=== PATIENT | female | born 1930 ===

== ENCOUNTER 2017-01-22 18:13 | Emergency (ER) | payer MEDICARE, OTHER ==
[2017-01-22 18:32] VITALS: RESP 18; O2SAT 99
[2017-01-22 19:43] LABS: BASO % 0.2 % (0.0-2.0); EOS % 0.1 % (0.0-4.0); HEMATOCRIT 40.5 % (34.0-47.0); LYMPH # 0.9 K/uL (1.0-4.3); LYMPH % 17.8 % (20.0-40.0); MEAN CELL VOLUME 92.5 fl (81.0-99.0); MEAN CORPUSCULAR HEMOGLOBIN 31.4 pg (27.0-31.0); MEAN CORPUSCULAR HGB CONC 33.9 g/dL (33.0-37.0); MEAN PLATELET VOLUME 9.7 fl (7.2-11.7); MONO # 0.5 K/uL (0.0-0.8); MONO % 9.9 % (0.0-10.0); NEUT # 3.7 K/uL (1.8-7.0); NRBC % 0.2 % (0.0-0.0); RED CELL DISTRIBUTION WIDTH 13.6 % (11.5-14.5); WHITE BLOOD COUNT 5.2 K/uL (4.8-10.8)
--- NOTE | 2017-01-22 19:44 | ED PDOC ---
Syncope/Near Syncope/Dizzyness Time Seen by Provider: 01/22/17 19:10 Chief Complaint (Nursing): Dizziness/Lightheaded Chief Complaint (Provider): Dizziness History Per: Patient, Family (son) History/Exam Limitations: no limitations Onset/Duration Of Symptoms: Hrs (x5 hours ago), Sudden Onset Current Symptoms Are (Timing): Better Current Symptoms: none Number Of Syncopal Episodes: 1 Activity At Onset Of Symptoms: Had Just Stood up Associated Symptoms Preceding Syncopal Episode: No Predromal Symptoms (Sudden Onset) Possible Causative Factor(s): Lightheaded W/Standing Fall Associated With With Symptoms: No, No Injury As Result Of Fall Severity: Moderate Additional Complaint(s): Marce Barahona is a 87 year old female, with a past medical history of HTN, who presents to the emergency department with complaints of a syncopal episode that she experienced five hours prior to arrival at 2:30 P.M on 2016. The patient reports the initial onset of the syncopal episode coming on suddenly as she stood up from a nap. She slipped and fell back, but did not hit her head or retain any injuries. After the episode ended, she called her son and he brought her into the emergency department. He explained that on the way to the emergency room that she was unsteady for a brief amount of time; however , she reports feeling better now and remembering everything completely. The patient denies dizziness. PMD: Tiffanie Levine - Symptoms Of CVA Recent Aspirin Use: Unknown Current Coumadin Use?: Unknown Past Medical History Reviewed: Historical Data, Nursing Documentation, Vital Signs Vital Signs: Last Vital Signs Temp 99.5 F 01/22/17 18:28 Pulse 117 H 01/22/17 18:28 Resp 18 01/22/17 18:28 BP 144/70 01/22/17 18:28 Pulse Ox 99 01/22/17 18:28 - Medical History PMH: Arthritis, HTN - Surgical History Surgical History: No Surg Hx - Family History Family History: States: Unknown Family Hx - Social History Current smoker - smoking cessation education provided: No Ex-Smoker (has not smoked in the last 12 months): No Alcohol: None Drugs: Denies - Home Medications Home Medications: Ambulatory Orders Medication Instructions Recorded Docusate Sodium [Colace] 100 mg PO BID #20 sgl 06/10/15 oxyCODONE/Acetaminophen [Percocet 1 ea PO Q6 #10 tab 06/10/15 5/325 mg Tab] Nitrofurantoin Macrocrystals 100 mg PO BID 5 Days 01/22/17 [Macrobid] - Allergies Allergies/Adverse Reactions: Allergies Allergy/AdvReac Type Severity Reaction Status Date / Time No Known Allergies Allergy Verified 06/10/15 16:49 - Laboratory Results Result Diagrams: 01/22/17 19:20 01/22/17 19:20 - ECG O2 Sat by Pulse Oximetry: 99
[2017-01-22 19:55] LABS: CALCIUM 9.6 mg/dL (8.4-10.2)
[2017-01-22 19:57] LABS: POTASSIUM 5.2 MMOL/L (3.6-5.0)
[2017-01-22 20:07] LABS: TROPONIN I 0.014 ng/mL (0.00-0.120)
[2017-01-22 20:16] LABS: RBC URINE 8 /hpf (0-3); URINE BACTERIA RARE (<OCC); URINE BILIRUBIN NEGATIVE (NEGATIVE); URINE BLOOD MODERATE (NEGATIVE); URINE COLOR YELLOW (YELLOW); URINE GLUCOSE (UA) NEG (Normal); URINE KETONE NEGATIVE (NEGATIVE); URINE LEUKOCYTE ESTERASE LARGE Leu/uL (Negative); URINE PROTEIN 30 mg/dL (NEGATIVE); URINE UROBILINOGEN 0.2-1.0 mg/dL (0.2-1.0); WBC URINE 373 /hpf (0-5)
[2017-01-22 20:34] VITALS: BP 139/109; PULSE 95; TEMP 98.4
--- NOTE | 2017-01-22 20:40 | ED PDOC ---
HPI: General Adult Time Seen by Provider: 01/22/17 19:10 Chief Complaint (Nursing): Dizziness/Lightheaded Chief Complaint (Provider): Mechanical Loss of Balance History Per: Patient, Family (son) History/Exam Limitations: no limitations Onset/Duration Of Symptoms: Hrs (x5 hours ago) Have you had recent travel within the past 21 days to any of the following countries: [place], [place], [place] or [place]?: No Current Symptoms Are (Timing): Better Severity: Moderate Additional Complaint(s): Marce Barahona is a 87 year old female, with a past medical history of HTN, who presents to the emergency department for the evaluation of a mechanical loss of balance that she experienced five hours prior to arrival at 2 :30 P.M on 01/22/2017 as she had stood up from her bed after a nap. She slipped and fell back, but did not hit her head or sustain any injuries. After the episode ended, she called her son and he brought her into the emergency department. He explained that on the way to the emergency room that she was unsteady for a brief amount of time; however, she reports feeling better now and that she remembers all events. The patient denies dizziness, a headache, chest pain, and shortness of breath. PMD: Tiffanie Levine Past Medical History Reviewed: Historical Data, Nursing Documentation, Vital Signs Vital Signs: Last Vital Signs Temp 98.4 F 01/22/17 20:33 Pulse 95 H 01/22/17 20:33 Resp 18 01/22/17 20:33 BP 139/109 H 01/22/17 20:33 Pulse Ox 99 01/22/17 21:10 - Medical History PMH: Arthritis, HTN - Surgical History Surgical History: No Surg Hx - Family History Family History: States: Unknown Family Hx - Social History Current smoker - smoking cessation education provided: No Ex-Smoker (has not smoked in the last 12 months): No Alcohol: None Drugs: Denies - Home Medications Home Medications: Ambulatory Orders Medication Instructions Recorded Docusate Sodium [Colace] 100 mg PO BID #20 sgl 06/10/15 oxyCODONE/Acetaminophen [Percocet 1 ea PO Q6 #10 tab 06/10/15 5/325 mg Tab] Nitrofurantoin Macrocrystals 100 mg PO BID 5 Days 01/22/17 [Macrobid] - Allergies Allergies/Adverse Reactions: Allergies Allergy/AdvReac Type Severity Reaction Status Date / Time No Known Allergies Allergy Verified 06/10/15 16:49 Review of Systems Cardiovascular: Negative for: Chest Pain Respiratory: Negative for: Shortness of Breath Musculoskeletal: Positive for: Leg Pain (chronic - right-sided, sciatica) Neurological: Negative for: Headache, Dizziness Physical Exam - Reviewed Nursing Documentation Reviewed: Yes Vital Signs Reviewed: Yes - Physical Exam Appears: Positive for: Non-toxic, No Acute Distress Head Exam: Positive for: ATRAUMATIC, NORMOCEPHALIC Skin: Positive for: Normal Color, Warm, Dry Eye Exam: Positive for: Normal appearance, PERRL ENT: Positive for: Normal ENT Inspection Neck: Positive for: Normal, Supple Cardiovascular/Chest: Positive for: Regular Rate, Rhythm. Negative for: Murmur Respiratory: Positive for: Normal Breath Sounds. Negative for: Respiratory Distress Gastrointestinal/Abdominal: Positive for: Normal Exam, Soft. Negative for: Tenderness, Guarding, Rebound Back: Positive for: Normal Inspection. Negative for: L CVA Tenderness, R CVA Tenderness Extremity: Positive for: Normal ROM. Negative for: Tenderness Neurologic/Psych: Positive for: Alert, online merchandising manager II-XII (intact), Oriented, Cerebellar Tests (normal), Gait (normal). Negative for: Motor/Sensory Deficits , Aphasia, Facial Droop - Laboratory Results Result Diagrams: 01/22/17 19:20 01/22/17 19:20 - ECG O2 Sat by Pulse Oximetry: 99 Pulse Ox Interpretation: Normal Medical Decision Making Medical Decision Makin:10 Initial Impression: resolved gait, unsteadiness after waking up Initial Plan: * CXR * XR Pelvis * CBC * BMP * Troponin I * Urine Dip * UA * Urine Culture * Reevaluation 2100: Pt. w/ UTI. CXR w/ nonacute findings. Pt. walking around ED, remains without symptoms. Will d/c home. instructed to followup with PMD in 2-3 days. Scribe Attestation: Documented by Yung Munoz, training under Emily Louis, acting as a scribe for Luis Yeung MD. Provider Scribe Attestation: All medical record entries made by the Scribe were at my direction and personally dictated by me. I have reviewed the chart and agree that the record accurately reflects my personal performance of the history, physical exam, medical decision making, and the department course for this patient. I have also personally directed, reviewed, and agree with the discharge instructions and disposition. Disposition - Clinical Impression Clinical Impression: UTI (urinary tract infection) - Disposition Referrals: Tiffanie Levine MD [Family Provider] - Disposition Time: 21:00 Condition: STABLE Prescriptions: Nitrofurantoin Macrocrystals [Macrobid] 100 mg PO BID 5 Days Instructions: Urinary Tract Infection in Women (ED) Print Language: MALAYSIAN
--- NOTE | 2017-01-22 21:19 | RAD ---
EXAM: XR Pelvis, 1 or 2 Views CLINICAL HISTORY: 87 years old, female; Pain; Pelvic pain; Additional info: R/O FX TECHNIQUE: Frontal view of the pelvis. COMPARISON: CR - PELVIS ONE VIEW 06/10/2015 6:13:04 PM FINDINGS: Bones/joints: No acute fracture. Degenerative changes of lower lumbar spine. No dislocation. Mild enthesopathy. Soft tissues: Vascular calcifications. IMPRESSION: 1. No fracture. 2. If hip pain persists, consider MRI to exclude occult fracture/internal derangement. 3. Incidental/non-acute findings are described above.
--- NOTE | 2017-01-22 21:20 | RAD ---
EXAM: XR Chest, 1 View CLINICAL HISTORY: 87 years old, female; Pain; Chest pain; Type not specified; Additional info: R/O pna TECHNIQUE: Frontal view of the chest. COMPARISON: No relevant prior studies available. FINDINGS: Lungs: No consolidation. Pleural space: No pleural effusion. No pneumothorax. Heart: No cardiomegaly. Mediastinum: Unremarkable. Bones/joints: No acute fracture. Degenerative changes of shoulders and spine. Other findings: Prominent costal cartilage calcifications. IMPRESSION: 1.No definite acute cardiopulmonary disease. 2.Non-acute findings are described above.
== END 2017-01-22 21:52 | disposition home or self-care (01) ==
LOC: H.ER 18:13
DX: N39.0 Urinary tract infection, site not specified (principal); R42 Dizziness and giddiness; I10 Essential (primary) hypertension; R10.2 Pelvic and perineal pain; R07.9 Chest pain, unspecified

== ENCOUNTER 2017-02-24 13:48 | Emergency (ER) | payer MEDICARE, OTHER ==
[2017-02-24 13:57] VITALS: BP 146/62; PULSE 102; RESP 18; TEMP 98.4; O2SAT 99
[2017-02-24] MEDS ORDERED: TDAP Vaccine 0.5 mL Syr IM ONE (15:01)
--- NOTE | 2017-02-24 15:02 | ED PDOC ---
HPI: Trauma/Fall - HPI Time Seen by Provider: 02/24/17 14:43 Chief Complaint (Nursing): Trauma Chief Complaint (Provider): Head Injury History Per: Patient Additional Complaint(s): Pt. is an 87 yo female, PMH of HTN and Arthritis, presents to ED for evaluation of a laceration sustained to her scalp when she tripped and fell. Pt was going to pick something up and hit her head on the edge of the door. Denies LOC. no nausea or vomiting Pt also complaining of pain to her right hand and right knee Past Medical History Reviewed: Nursing Documentation, Vital Signs Vital Signs: Last Vital Signs Temp 98.4 F 02/24/17 13:55 Pulse 102 H 02/24/17 13:55 Resp 18 02/24/17 13:55 BP 146/62 02/24/17 13:55 Pulse Ox 99 02/24/17 13:55 - Medical History PMH: Arthritis, HTN - Surgical History Surgical History: No Surg Hx - Family History Family History: States: Unknown Family Hx - Living Arrangements Living Arrangements: With Family - Immunization History Hx Tetanus Toxoid Vaccination: No - Home Medications Home Medications: Ambulatory Orders Medication Instructions Recorded Docusate Sodium [Colace] 100 mg PO BID #20 sgl 06/10/15 oxyCODONE/Acetaminophen [Percocet 1 ea PO Q6 #10 tab 06/10/15 5/325 mg Tab] Nitrofurantoin Macrocrystals 100 mg PO BID 5 Days 01/22/17 [Macrobid] traMADol [Ultram] 25 mg PO Q4 #10 tab 02/24/17 - Allergies Allergies/Adverse Reactions: Allergies Allergy/AdvReac Type Severity Reaction Status Date / Time No Known Allergies Allergy Verified 02/24/17 13:58 Review of Systems ROS Statement: Except As Marked, All Systems Reviewed And Found Negative Musculoskeletal: Positive for: Hand Pain, Other (knee pain) Skin: Positive for: Other (laceration) Neurological: Positive for: Headache Physical Exam - Reviewed Nursing Documentation Reviewed: Yes Vital Signs Reviewed: Yes - Physical Exam Appears: Positive for: Well, Non-toxic, No Acute Distress Head Exam: Positive for: ATRAUMATIC, NORMAL INSPECTION, NORMOCEPHALIC Skin: Positive for: Normal Color, Warm, DRY Eye Exam: Positive for: EOMI, Normal appearance, PERRL ENT: Positive for: Normal ENT Inspection Neck: Positive for: Normal, Painless ROM Cardiovascular/Chest: Positive for: Regular Rate, Rhythm Respiratory: Positive for: CNT, Normal Breath Sounds Gastrointestinal/Abdominal: Positive for: Normal Exam, Bowel Sounds, Soft Back: Positive for: Normal Inspection Extremity: Positive for: Normal ROM Neurologic/Psych: Positive for: Alert, Oriented - ECG O2 Sat by Pulse Oximetry: 99 Medical Decision Making Medical Decision Making: Laceration repaired by verse writer. head CT: No acute intracranial hemorrhage. Moderate-sized right frontoparietal scalp contusion and laceration with subcutaneous swelling and air. Mild chronic white matter ischemic changes with extension into both basal nuclei. Small calcific densities within the left lateral basal ganglia/subinsular region of uncertain etiology however rule out sequela of old trauma ischemia or infection. Mild age-appropriate volume loss. Hand and Knee XR: NAD, as read by SYDNIE-C Pt without complaints of pain on re-eval. Wound care discussed. Disposition - Clinical Impression Clinical Impression: Laceration of scalp, Head injury, Laceration - Patient ED Disposition Is Patient to be Admitted: No - Disposition Disposition: Routine/Home Disposition Time: 18:08 Condition: STABLE Additional Instructions: Staple removal in 7-10 days Prescriptions: traMADol [Ultram] 25 mg PO Q4 #10 tab Instructions: Laceration (ED), Head Injury (ED) Print Language: URDU Laceration - Laceration Repair laceration Wound Length (In cm): 10 Description Of Wound: Linear Wound Cleansed With: Sterile Saline Anesthesia: Lidocaine 1%, With Epi Wound Examination: Irrigated With Saline Wound Closure: Dash Suture Technique And Material Used: Interrupted Wound Complexity: Intermediate
[2017-02-24] MEDS ORDERED: Lidocaine 2% w Epi 1:100,000 Inj IJ ONE (15:40)
--- NOTE | 2017-02-24 15:48 | CT ---
Renal function seemingly of busy 901 with written and along the with the holes PROCEDURE: CT HEAD WITHOUT CONTRAST. HISTORY: fall COMPARISON: None available. TECHNIQUE: Axial computed tomography images were obtained through the head/brain without intravenous contrast. Radiation dose: Total exam DLP = 720.08 mGy-cm. This CT exam was performed using one or more of the following dose reduction techniques: Automated exposure control, adjustment of the mA and/or kV according to patient size, and/or use of iterative reconstruction technique. FINDINGS: HEMORRHAGE: No acute parenchymal, subarachnoid nor extra-axial hemorrhage. BRAIN: Mild chronic periventricular white matter ischemic changes with scattered deep and subcortical white matter ischemic changes as well. . There also appears be some extension of these changes into the white matter tracts of both basal nuclei Small calcific densities in the left lateral basal ganglia of uncertain etiology. Findings could be sequela of old trauma ischemia or infection. Clinical correlation recommended. Vascular calcifications of both carotid siphons VENTRICLES: Mild age-appropriate volume loss. CALVARIUM: No acute calvarial fractures. Moderate right frontoparietal scalp contusion and laceration with the subjacent soft tissue swelling of. Subcutaneous air is present PARANASAL SINUSES: Unremarkable as visualized. No significant inflammatory changes. MASTOID AIR CELLS: Unremarkable as visualized. No inflammatory changes. OTHER FINDINGS: None. IMPRESSION: No acute intracranial hemorrhage. Moderate-sized right frontoparietal scalp contusion and laceration with subcutaneous swelling and air. Mild chronic white matter ischemic changes with extension into both basal nuclei. Small calcific densities within the left lateral basal ganglia/subinsular region of uncertain etiology however rule out sequela of old trauma ischemia or infection. Mild age-appropriate volume loss.
--- NOTE | 2017-02-25 06:56 | RAD ---
PROCEDURE: Left Hand Radiographs. HISTORY: fall COMPARISON: None. FINDINGS: BONES: No evidence for acute fracture. JOINTS: Arthritic degenerative changes. SOFT TISSUES: Mild soft tissue swelling OTHER FINDINGS: None. IMPRESSION: No evidence of acute fracture or dislocation.
--- NOTE | 2017-02-25 06:57 | RAD ---
PROCEDURE: Right Knee Radiographs. HISTORY: fall COMPARISON: None. FINDINGS: BONES: Normal. No fracture. JOINTS: Moderate osteoarthritic changes. JOINT EFFUSION: None. OTHER FINDINGS: None. IMPRESSION: No evidence of acute fracture or dislocation. Moderate osteoarthritic changes.
== END 2017-02-24 18:20 | disposition home or self-care (01) ==
LOC: H.ER 13:48
DX: S01.01XA Laceration without foreign body of scalp, initial encounter (principal); W01.198A Fall on same level from slipping, tripping and stumbling with subsequent striking against other object, initial encounter; Y92.9 Unspecified place or not applicable; Z23 Encounter for immunization

== ENCOUNTER 2017-03-03 11:18 | Emergency (ER) | payer MEDICARE, OTHER ==
[2017-03-03 11:23] VITALS: RESP 18; TEMP 97.9
[2017-03-03] MEDS ORDERED: Hydrogen Peroxide 3% Soln (480ml) TP ONE ×2 (11:45→12:09)
--- NOTE | 2017-03-03 13:54 | CT ---
PROCEDURE: CT Cervical Spine without contrast HISTORY: Trauma COMPARISON: None available. TECHNIQUE: Axial computed tomography images were obtained of the cervical spine without the use of intravenous contrast. Coronal and sagittal reformatted images were created and reviewed. Radiation dose: Total exam DLP = yes at the mGy-cm. This CT exam was performed using one or more of the following dose reduction techniques: Automated exposure control, adjustment of the mA and/or kV according to patient size, and/or use of iterative reconstruction technique. FINDINGS: VERTEBRAE: No acute fracture. Unremarkable alignment. DISCS/SPINAL CANAL/NEURAL FORAMINA: Multilevel disc degenerative changes primarily affecting C4-5, C5-6 and C6-7. Central bar formation noted and extending asymmetrically into the exiting neural foramen at C4-5. Broad-based bar formation with asymmetric foraminal narrowing at C6-7. PARASPINAL SOFT TISSUES: Unremarkable. OTHER FINDINGS: None. IMPRESSION: No acute fractures. Disc degenerative changes, uncovertebral hypertrophy primarily lower cervical spine described in greater detail above.
--- NOTE | 2017-03-03 14:06 | ED PDOC ---
HPI: Wound Care - HPI Time Seen by Provider: 03/03/17 11:36 Chief Complaint (Nursing): Suture/Staple Removal Chief Complaint (Provider): Suture/Staple Removal History Per: Patient Exam Limitations: no limitations Onset/Duration Of Symptoms: Days Current Symptoms Are (Timing): Still Present Severity: Mild Additional Complaint(s): Patient is a 87 year old female who presents to ED for evaluation of a head injury sustained 1 week ago. Patient reportedly fell, evaluated in ED and head laceration repaired with cameron. Now in ED for staple removal but notes new onset right sided neck pain. Denies any headache, syncope or weakness. Reports 1 episode of vomiting yesterday but that has since resolved with no abdominal pain. Past Medical History Reviewed: Historical Data, Nursing Documentation (.0), Vital Signs Vital Signs: Last Vital Signs Temp 97.9 F 03/03/17 11:19 Pulse 109 H 03/03/17 11:19 Resp 18 03/03/17 11:19 BP 132/64 03/03/17 11:19 Pulse Ox 98 03/03/17 11:19 - Medical History PMH: Arthritis, HTN - Surgical History Surgical History: No Surg Hx - Family History Family History: States: Unknown Family Hx - Immunization History Hx Tetanus Toxoid Vaccination: No - Home Medications Home Medications: Ambulatory Orders Medication Instructions Recorded Docusate Sodium [Colace] 100 mg PO BID #20 sgl 06/10/15 oxyCODONE/Acetaminophen [Percocet 1 ea PO Q6 #10 tab 06/10/15 5/325 mg Tab] Nitrofurantoin Macrocrystals 100 mg PO BID 5 Days 01/22/17 [Macrobid] traMADol [Ultram] 25 mg PO Q4 #10 tab 02/24/17 - Allergies Allergies/Adverse Reactions: Allergies Allergy/AdvReac Type Severity Reaction Status Date / Time No Known Allergies Allergy Verified 02/24/17 13:58 Review of Systems ROS Statement: Except As Marked, All Systems Reviewed And Found Negative Constitutional: Negative for: Fever, Weakness Eyes: Negative for: Vision Change Gastrointestinal: Positive for: Vomiting (resolved). Negative for: Nausea Musculoskeletal: Positive for: Neck Pain. Negative for: Back Pain Neurological: Negative for: Weakness, Headache, Dizziness Physical Exam - Reviewed Nursing Documentation Reviewed: Yes Vital Signs Reviewed: Yes - Physical Exam Appears: Positive for: Non-toxic, No Acute Distress Head Exam: Negative for: ATRAUMATIC (Large healing head laceration superior scalp with cameron, intact wtih significant dry blood (-) discharge (-) erythema (-) swelling ) Skin: Positive for: Normal Color, Warm Eye Exam: Positive for: Normal appearance, PERRL Neck: Positive for: Normal, Painless ROM, Supple Extremity: Positive for: Normal ROM Neurologic/Psych: Positive for: Alert, Oriented. Negative for: Motor/Sensory Deficits - ECG O2 Sat by Pulse Oximetry: 98 (RA) Medical Decision Making Medical Decision Making: Time: 1245 Initial impression: Head laceration, wound check Initial plan: -- CT-cervical neck Wound cleansed with hydrogen peroxide wand water, hald cameron removed. Noted area of delayed healing, bacitracin applied and remaining cameron with stay in place. Instructed patient to return in 3 days for wound check. Scribe Attestation: Documented by Nilam Marshall acting as a scribe for Homar Fulton DO MD Scribe Attestation: All medical record entries made by the Scribe were at my direction and personally dictated by me. I have reviewed the chart and agree that the record accurately reflects my personal performance of the history, physical exam, medical decision making, and the department course for this patient. I have also personally directed, reviewed, and agree with the discharge instructions and disposition.
[2017-03-03 15:00] VITALS: BP 128/70; PULSE 91; O2SAT 99
== END 2017-03-03 14:48 | disposition home or self-care (01) ==
LOC: H.ER 11:18
DX: Z48.02 Encounter for removal of sutures (principal)

== ENCOUNTER 2017-03-06 10:55 | Emergency (ER) | payer MEDICARE, OTHER ==
[2017-03-06 11:06] VITALS: BMI 22.6
[2017-03-06 11:08] VITALS: BP 127/60; PULSE 91; RESP 18; TEMP 97.7; O2SAT 100
--- NOTE | 2017-03-06 11:32 | ED PDOC ---
HPI: Wound Care - HPI Time Seen by Provider: 03/06/17 11:31 Chief Complaint (Nursing): Suture/Staple Removal Chief Complaint (Provider): staple removal History Per: Patient, Family Additional Complaint(s): 87-year-old female presents to emergency department for removal of cameron from laceration to scalp that was repaired 10 days ago. She has no pain, drainage or bleeding from the affected area. Denies fever or chills. She arrives with her son. Tetanus is up-to-date. Past Medical History Reviewed: Historical Data, Nursing Documentation, Vital Signs Vital Signs: Last Vital Signs Temp 97.7 F 03/06/17 11:07 Pulse 91 H 03/06/17 11:07 Resp 18 03/06/17 11:07 BP 127/60 03/06/17 11:07 Pulse Ox 100 03/06/17 11:07 - Medical History PMH: Arthritis, HTN - Surgical History Surgical History: No Surg Hx - Family History Family History: States: No Known Family Hx - Living Arrangements Living Arrangements: With Family - Social History Current smoker - smoking cessation education provided: No Alcohol: None Drugs: Denies - Immunization History Hx Tetanus Toxoid Vaccination: Yes - Home Medications Home Medications: Ambulatory Orders Medication Instructions Recorded Docusate Sodium [Colace] 100 mg PO BID #20 sgl 06/10/15 oxyCODONE/Acetaminophen [Percocet 1 ea PO Q6 #10 tab 06/10/15 5/325 mg Tab] Nitrofurantoin Macrocrystals 100 mg PO BID 5 Days 01/22/17 [Macrobid] traMADol [Ultram] 25 mg PO Q4 #10 tab 02/24/17 - Allergies Allergies/Adverse Reactions: Allergies Allergy/AdvReac Type Severity Reaction Status Date / Time No Known Allergies Allergy Verified 02/24/17 13:58 Review of Systems ROS Statement: Except As Marked, All Systems Reviewed And Found Negative Constitutional: Negative for: Fever Skin: Positive for: Other (removal of cameron from scalp laceration) Physical Exam - Reviewed Nursing Documentation Reviewed: Yes Vital Signs Reviewed: Yes - Physical Exam Appears: Positive for: Well, Non-toxic, No Acute Distress Skin: Negative for: Rash Eye Exam: Positive for: EOMI, PERRL. Negative for: Normal appearance Neck: Negative for: Painless ROM Cardiovascular/Chest: Positive for: Regular Rate, Rhythm Respiratory: Positive for: Normal Breath Sounds Extremity: Positive for: Normal ROM. Negative for: Pedal Edema Neurologic/Psych: Positive for: Alert, Oriented, Gait (steady) - ECG O2 Sat by Pulse Oximetry: 100 Pulse Ox Interpretation: Normal Medical Decision Making Medical Decision Makin87 year old here for staple removal Scalp wound is well healed - all cameron removed without difficulty, no infection noted. Wound care instructions given. Disposition - Clinical Impression Clinical Impression: Removal of staple - Patient ED Disposition Is Patient to be Admitted: No Counseled Patient/Family Regarding: Diagnosis, Need For Followup - Disposition Referrals: [facility] [Outside] Disposition: Routine/Home Disposition Time: 12:05 Condition: STABLE Additional Instructions: Keep wound clean and dry. Follow up with primary care doctor or clinic in 2-3 days. Instructions: Stitches Removal (ED) Print Language: AMHARIC
== END 2017-03-06 12:26 | disposition home or self-care (01) ==
LOC: H.ER 10:55
DX: Z48.02 Encounter for removal of sutures (principal); I10 Essential (primary) hypertension